=== PATIENT | female | born 1945 | race Caucasian/White ===

== ENCOUNTER 2017-12-04 11:13 | Emergency (ER) | payer BC ==
[2017-12-04 11:20] VITALS: BMI 35.4
--- NOTE | 2017-12-04 12:11 | PDOC ---
History of Present Illness - General Chief Complaint: Pain Stated Complaint: POSSIBLE BLOOD CLOT (LEG) Time Seen by Provider: 12/04/17 11:38 History Source: Patient, Family Exam Limitations: No Limitations - History of Present Illness Initial Comments: This is a 72 YOF with h/o NIDDM with neuropathy, HTN, and HLD who p/w right leg pain/swelling/dilated-appearing blood vessels. She was sent to the ED by her PCP (Dr. Melendrez at [facility]) for continued right leg pain for the past month with worsening over the past week. The patient and her son note that she was seen for these symptoms by this PCP last week and had an US of the RLE which did not show e/o blood clot. The patient states that the pain is crampy, worse in the right calf but radiates between the knee and ankle, fluctuates up to 10/10, worsens with any movement and weight bearing, and has caused her difficulty walking over the past week. She denies any chest pain, SOB , new palpitations, headache, neck pain, new dizziness, abdominal pain, nausea, new numbness, new tingling, new weakness, or other new symptoms. Past History - Past Medical History Allergies/Adverse Reactions: Allergies Allergy/AdvReac Type Severity Reaction Status Date / Time No Known Allergies Allergy Verified 12/04/17 11:16 Home Medications: Ambulatory Orders Cephalexin [Keflex] 500 mg PO BID #10 capsule 12/04/17 Walker [Ultra-Light Rollator] 1 each MC PRN #1 each 12/04/17 COPD: No Diabetes: Yes HTN: Yes Hypercholesterolemia: Yes Thyroid Disease: Yes - Suicide/Smoking/Psychosocial Hx Smoking History: Never smoked Have you smoked in the past 12 months: No Information on smoking cessation initiated: No Hx Alcohol Use: No Drug/Substance Use Hx: No Substance Use Type: None Review of Systems - Review of Systems Able to Perform ROS?: Yes Constitutional: No: Chills, Fever, Unexplained wgt Loss HEENTM: No: Nose Congestion, Throat Pain Respiratory: No: Cough, Shortness of Breath Cardiac (ROS): Yes: Palpitations (chronic intermittent unchanged). No: Chest Pain ABD/GI: No: Constipated, Diarrhea, Nausea, Vomiting : No: Burning, Dysuria Musculoskeletal: Yes: Other (left leg pain/swelling). No: Back Pain, Neck Pain Integumentary: No: Bruising, Rash Neurological: No: Headache, Numbness, Tingling, Weakness, Dizziness Endocrine: No: Unexplained Weight Gain, Unexplained Weight Loss *Physical Exam - Vital Signs Last Vital Signs Temp Pulse Resp BP Pulse Ox 98.3 F 88 18 130/62 100 12/04/17 11:18 12/04/17 11:18 12/04/17 11:18 12/04/17 11:18 12/04/17 11:18 - Physical Exam General Appearance: Yes: Nourished, Appropriately Dressed, Other (alert, oriented, very pleasant older adult female in minimal distress relaxing on hospital bed with son at bedside, answering questions appropriately). No: Apparent Distress HEENT: positive: EOMI, ALEJANDRO, Normal Voice, Hearing Grossly Normal. negative: Scleral Icterus (R), Scleral Icterus (L), Nasal Congestion Neck: positive: Trachea midline, Supple. negative: Tender, Rigid Respiratory/Chest: positive: Lungs Clear, Normal Breath Sounds. negative: Respiratory Distress, Crackles, Rhonchi, Stridor, Wheezing Cardiovascular: positive: Regular Rhythm, Regular Rate, S1, S2. negative: Edema , JVD, Murmur Vascular Pulses: Dorsalis-Pedis (R): 2+, Doralis-Pedis (L): 2+ Gastrointestinal/Abdominal: positive: Normal Bowel Sounds, Flat, Soft. negative : Tender, Organomegaly, Pulsatile Mass, Guarding Musculoskeletal: positive: Normal Inspection. negative: Decreased Range of Motion, Vertebral Tenderness Extremity: positive: Normal Capillary Refill, Tender (right calf tenderness which is moderate and diffuse), Other (mild right medial knee and proximal lower leg swelling with dilated veins and varicosities in leg, painful passive ROM of knee on the right). negative: Cyanosis Integumentary: positive: Normal Color, Dry, Warm. negative: Erythema, Rash, Bruising Neurologic: positive: retail account specialist II-XII NML intact, Fully Oriented, Alert, Normal Mood/ Affect, Normal Response, Motor Strength 5/5 Heart Score/ECG Review #1 12/04/17 14:57 SR, rate 76, 1st degree AV block, normal axis, no ischemic changes ED Treatment Course - LABORATORY CBC & Chemistry Diagram: 12/04/17 13:12 12/04/17 13:12 - RADIOLOGY Radiology Studies Ordered: Category Date Time Status DUPLEX VASCUL US-1 LEG [US] Stat Ultrasound 12/04/17 11:38 Ordered Medical Decision Making - Medical Decision Making Older adult female Patient p/w RLE pain/swelling/dilated blood vessels for the past month. Initial Vital Signs Temp Pulse Resp BP Pulse Ox 98.3 F 88 18 130/62 100 12/04/17 11:18 12/04/17 11:18 12/04/17 11:18 12/04/17 11:18 12/04/17 11:18 Exam: RLE calf tenderness, mild medial knee swelling, varicosities, but pulses intact distally DDX IBNLT: W/U ordered: TX ordered: EKG: SR, rate 76, 1st degree AV block, normal axis, no ischemic changes CXR: UA RLE: Mckinney's cyst, knee effusion, no e/o DVT. CT: Laboratory Tests 12/04/17 12/04/17 12/04/17 13:12 13:12 13:12 WBC 6.4 RBC 4.01 Hgb 11.4 Hct 34.3 MCV 85.5 MCH 28.3 MCHC 33.1 RDW 14.0 Plt Count 211 MPV 8.8 Neutrophils % 60.7 Lymphocytes % 27.6 Monocytes % 9.3 Eosinophils % 2.2 Basophils % 0.2 PT with INR 12.90 INR 1.14 Sodium 139 Potassium 3.7 Chloride 105 Carbon Dioxide 26 Anion Gap 8 BUN 24 H Creatinine 0.8 Creat Clearance w eGFR > 60 Random Glucose 205 H Calcium 8.2 L Phosphorus 2.2 L Magnesium 1.5 L Total Bilirubin 0.3 AST 19 ALT 21 Alkaline Phosphatase 51 Creatine Kinase Creatine Kinase Index CK-MB (CK-2) Troponin I B-Natriuretic Peptide Total Protein 6.7 Albumin 3.4 Urine Color Urine Appearance Urine pH Ur Specific [place] Urine Protein Urine Glucose (UA) Urine Ketones Urine Blood Urine Nitrite Urine Bilirubin Urine Urobilinogen Ur Leukocyte Esterase Urine WBC (Auto) Urine RBC (Auto) Ur Epithelial Cells 12/04/17 12/04/17 13:12 17:26 WBC RBC Hgb Hct MCV MCH MCHC RDW Plt Count MPV Neutrophils % Lymphocytes % Monocytes % Eosinophils % Basophils % PT with INR INR Sodium Potassium Chloride Carbon Dioxide Anion Gap BUN Creatinine Creat Clearance w eGFR Random Glucose Calcium Phosphorus Magnesium Total Bilirubin AST ALT Alkaline Phosphatase Creatine Kinase 193 H Creatine Kinase Index 1.1 CK-MB (CK-2) 2.224 Troponin I < 0.02 B-Natriuretic Peptide 155.83 H Total Protein Albumin Urine Color Ltyellow Urine Appearance Slcloudy Urine pH 6.0 Ur Specific [place] 1.014 Urine Protein Negative Urine Glucose (UA) Negative Urine Ketones Negative Urine Blood Negative Urine Nitrite Positive Urine Bilirubin Negative Urine Urobilinogen Negative Ur Leukocyte Esterase 2+ H Urine WBC (Auto) 46 Urine RBC (Auto) <1 Ur Epithelial Cells Rare The patient has gotten significant relief of symptoms with ED medications. Workup is not concerning for emergency-level pathology at this time. The patient is appropriate for discharge with close outpatient follow up. They are comfortable with this plan and will follow up with their PCP in 1-3 days. They will follow up with Dr. Jennings (ortho) tomorrow. E-Rx sent to the patient's pharmacy for Abx for their UTI. Return precautions are discussed and they will come back to the ER if necessary. *DC/Admit/Observation/Transfer Diagnosis at time of Disposition: Knee effusion, right, Arterial occlusion, lower extremity, Right leg pain UTI (urinary tract infection) Qualifiers: Urinary tract infection type: acute cystitis Hematuria presence: without hematuria Qualified Code(s): N30.00 - Acute cystitis without hematuria - Discharge Dispostion Disposition: HOME Condition at time of disposition: Stable Decision to Admit order: No - Prescriptions Prescriptions: Cephalexin [Keflex] 500 mg PO BID #10 capsule Walker [Ultra-Light Rollator] 1 each PRN #1 each - Referrals Referrals: Clifford Bennett [Primary Care Provider] - - Patient Instructions Printed Discharge Instructions: DI for Knee Effusion Additional Instructions: You were seen in the ER for knee swelling and leg pain. We did lab work on your blood and urine, and these tests showed a urinary tract infection. We also did an ultrasound of the leg which showed no blood clots. We also did a CT scan of the leg which showed a mckinney's cyst at the back of the knee, some fluid within the knee joint, some soft tissue swelling near the knee, and occlusion of one of the arteries in the lower leg. After our assessment, we do not believe you are having a medical emergency at this time, and we believe you are safe to go home. Please follow up with Dr. Jennings as scheduled tomorrow, and with your regular PCP doctor in 1-3 days. Call their clinic as soon as possible, tell them you were seen in the ER, and tell them you need an appointment. supervisor contingents your prescription for antibiotics for your infection from your pharmacy, and take the whole course whether or not you feel better. If you have any new or worsening symptoms, please come back to the ER at any time (24 hours a day). If you are having severe or life threatening symptoms, or symptoms that make it unsafe to drive or have someone drive you, please call 911. - Post Discharge Activity
--- NOTE | 2017-12-04 12:30 | PDOC ---
Attending Attestation - Resident Resident Name: Andrew,Mary - ED Attending Attestation I have performed the following: I have examined & evaluated the patient, The case was reviewed & discussed with the resident, I agree w/resident's findings & plan, Exceptions are as noted - HPI HPI: 12/04/17 13:21 72-year-old female with history of hypertension, diabetes, hyperlipidemia, peripheral neuropathy presents with right lower calf pain for 3 days. Patient reports 3 days ago developing some right lower extremity pain that was nontraumatic. Went to visit her private care physician or obtain a duplex of her lower extremity reportedly was negative for DVTs. The patient was then placed on water pills the patient subsequently reported the symptoms worsened in the right calf. Stated that the patient has been urinating from the medication. States that when she plantar flexes her right foot that she has worsened pain. Denies chest pain or shortness of breath or abdominal pain. States that ambulate he has caused her difficulty. Patient states that the pain is different from her peripheral neuropathy. - Physicial Exam PE: 12/04/17 13:21 GENERAL: Awake, alert, and fully oriented, in no acute distress. HEAD: No signs of trauma EYES: PERRLA, EOMI, sclera anicteric, conjunctiva clear ENT: Auricles normal inspection, hearing grossly normal, nares patent, oropharynx clear without exudates. NECK: Normal ROM, supple, EXTREMITIES: RLE: 2+ DP pulse. Sensation intact throughout. TTP right calf. NEUROLOGICAL: Cranial nerves II through XII grossly intact. Normal speech SKIN: Warm, Dry, normal turgor, no rashes or lesions noted. - Medical Decision Making 12/04/17 13:21 Vital Signs Temp Pulse Resp BP Pulse Ox 98.3 F 88 18 130/62 100 12/04/17 11:18 12/04/17 11:18 12/04/17 11:18 12/04/17 11:18 12/04/17 11:18 I suspect is is likely right calf cramping potentially exacerbated by diuresis on her water pills. We'll trial and give her IV fluids. However, patient is at risk for peripheral vascular disease but the patient does have strong distal pulses. I am not concerned for cold foot at this time. We'll obtain a CTA of the lower extremity. Pain control, repeat duplex and reassess. 12/04/17 17:15 CAT scan demonstrates no significant stenotic disease with three-vessel runoff and left leg to the foot and 3 vessel runoff in the right leg to the level of the ankle with a right PTs occluded with transmetatarsal flow to the plantar aspect of the foot twice a day MOUNA. Ultrasound shows: No evidence of right lower extremity deep vein thrombosis. Right knee joint effusion with thick surrounding soft tissue suggesting synovitis. Approximately 4.8 x 1.3 x 1.0 cm right Mckinney's cyst. CBC, BMP 12/04/17 13:12 12/04/17 13:12 CMP Sodium 139 mmol/L (136-145) 12/04/17 13:12 Potassium 3.7 mmol/L (3.5-5.1) 12/04/17 13:12 Chloride 105 mmol/L (98-107) 12/04/17 13:12 Carbon Dioxide 26 mmol/L (21-32) 12/04/17 13:12 Anion Gap 8 (8-16) 12/04/17 13:12 BUN 24 mg/dL (7-18) H 12/04/17 13:12 Creatinine 0.8 mg/dL (0.55-1.02) 12/04/17 13:12 Creat Clearance w eGFR > 60 (>60) 12/04/17 13:12 Random Glucose 205 mg/dL (74-106) H 12/04/17 13:12 Calcium 8.2 mg/dL (8.5-10.1) L 12/04/17 13:12 Phosphorus 2.2 mg/dL (2.5-4.9) L 12/04/17 13:12 Magnesium 1.5 mg/dL (1.8-2.4) L 12/04/17 13:12 Total Bilirubin 0.3 mg/dL (0.2-1.0) 12/04/17 13:12 AST 19 U/L (15-37) 12/04/17 13:12 ALT 21 U/L (12-78) 12/04/17 13:12 Alkaline Phosphatase 51 U/L (45-117) 12/04/17 13:12 Creatine Kinase 193 IU/L (26-192) H 12/04/17 13:12 Creatine Kinase Index 1.1 % (0.0-5.0) 12/04/17 13:12 CK-MB (CK-2) 2.224 ng/mL (0.5-3.6) 12/04/17 13:12 Troponin I < 0.02 ng/ml (0.00-0.05) 12/04/17 13:12 B-Natriuretic Peptide 155.83 pg/ml (5-125) H 12/04/17 13:12 Total Protein 6.7 g/dl (6.4-8.2) 12/04/17 13:12 Albumin 3.4 g/dl (3.4-5.0) 12/04/17 13:12 UA pending to r/o UTI. At this time, WBC is normal and no fever. I do not suspect an infected knee infection at this time. There is a mckinney's cyst which is likely the source of her pain. The patient is ambulatory with tylenol. She has an appointment with Dr. Jennings tomorrow. Heart Score/ECG Review #1 ECG reviewed & interpreted by me at: 12:15 12/04/17 12:29 NSR 76 with 1st degree AV block, no std/sarahy, T wave flat III, normal axis, normal intervals, QTC 445 msec
[2017-12-04] MEDS ORDERED: ACETAMINOPHEN 1000 MG/100 ML VIAL (NON FORMULARY) IVPB ONE (13:00)
[2017-12-04] MEDS ORDERED: SODIUM CHLORIDE 0.9% 500 ML INFUS.BAG IV ONE (13:00)
[2017-12-04] MEDS ORDERED: ACETAMINOPHEN INJECTION 100 ML IVPB ONE (13:18)
[2017-12-04 13:21] LABS: BASO % 0.2 % (0-2.0); EOS % 2.2 % (0-4.5); HEMATOCRIT 34.3 % (32.4-45.2); HEMOGLOBIN 11.4 GM/dL (10.7-15.3); LYMPH % 27.6 % (8-40); MCH 28.3 pg (25.7-33.7); MCHC 33.1 g/dl (32.0-36.0); MEAN CELL VOLUME 85.5 fl (80-96); MEAN PLT VOLUME 8.8 fl (7.5-11.1); MONO % 9.3 % (3.8-10.2); NEUT % 60.7 % (42.8-82.8); PLATELET COUNT 211 K/MM3 (134-434); RBC 4.01 M/mm3 (3.60-5.2); WHITE BLOOD COUNT 6.4 K/mm3 (4.0-10.0)
[2017-12-04 13:45] LABS: ALBUMIN 3.4 g/dl (3.4-5.0); ANION GAP 8 (8-16); BILIRUBIN,TOTAL 0.3 mg/dL (0.2-1.0); BLOOD UREA NITROGEN 24 mg/dL (7-18); CALCIUM 8.2 mg/dL (8.5-10.1); CHLORIDE 105 mmol/L (98-107); CO2 26 mmol/L (21-32); CREATININE 0.8 mg/dL (0.55-1.02); GLUCOSE,RANDOM 205 mg/dL (74-106); MAGNESIUM 1.5 mg/dL (1.8-2.4); PHOSPHOROUS 2.2 mg/dL (2.5-4.9); POTASSIUM 3.7 mmol/L (3.5-5.1); SGOT/AST 19 U/L (15-37); SGPT/ALT 21 U/L (12-78); SODIUM 139 mmol/L (136-145); TOT PROT 6.7 g/dl (6.4-8.2)
[2017-12-04 13:46] LABS: ALK PHOS 51 U/L (45-117); INR 1.14 (0.82-1.09); N-TERMINAL BNP 155.83 pg/ml (5-125); PROTHROMBIN TIME (PATIENT) 12.9 SEC (9.7-13.0)
--- NOTE | 2017-12-04 13:52 | EKG ---
Test Reason : Blood Pressure : / mmHG Vent. Rate : 076 BPM Atrial Rate : 076 BPM P-R Int : 226 ms QRS Dur : 084 ms QT Int : 396 ms P-R-T Axes : 078 025 040 degrees QTc Int : 445 ms SINUS RHYTHM WITH 1ST DEGREE A-V BLOCK OTHERWISE NORMAL ECG NO PREVIOUS ECGS AVAILABLE Confirmed by MD Eric, Marco ([id number]) on 12/04/2017 1:52:12 PM Referred By: Confirmed By:Marco Reyes MD
[2017-12-04] MEDS ORDERED: MAGNESIUM SULF 50% (8.12 MEQ/2 ML-1 GM VIAL) IVPB ONE (14:21)
[2017-12-04] MEDS ORDERED: MAGNESIUM SULF 50% (8.12 MEQ/2 ML-1 GM VIAL) ONE (15:38)
[2017-12-04 16:20] VITALS: BP 128/64; PULSE 80; TEMP 98.1
[2017-12-04 17:31] LABS: URINE APPEARANCE SLCLOUDY; URINE BILIRUBIN NEGATIVE (<2.0 mg/dL); URINE COLOR LTYELLOW; URINE GLUCOSE (UA) NEGATIVE (NEGATIVE); URINE KETONE NEGATIVE (NEGATIVE); URINE LEUK ESTERASE 2+ (NEGATIVE); URINE NITRITE POSITIVE (NEGATIVE); URINE PROTEIN NEGATIVE (NEGATIVE); URINE UROBILINOGEN NEGATIVE mg/dL (0.2-1.0)
[2017-12-04 17:34] LABS: EPI CELLS RARE /HPF (FEW)
== END 2017-12-04 18:12 | disposition home or self-care (01) ==
LOC: JER 11:13
PROC: 3E033NZ Introduction of Analgesics, Hypnotics, Sedatives into Peripheral Vein, Percutaneous Approach (ICD-10-PCS; principal; 2017-12-04)
PROC: 3E033GC Introduction of Other Therapeutic Substance into Peripheral Vein, Percutaneous Approach (ICD-10-PCS; 2017-12-04)
DX: M71.21 Synovial cyst of popliteal space [Baker], right knee (principal); N30.00 Acute cystitis without hematuria; M25.461 Effusion, right knee; I77.89 Other specified disorders of arteries and arterioles; I10 Essential (primary) hypertension; E78.5 Hyperlipidemia, unspecified; R00.2 Palpitations; E11.42 Type 2 diabetes mellitus with diabetic polyneuropathy; Z79.84 Long term (current) use of oral hypoglycemic drugs; R26.89 Other abnormalities of gait and mobility; Z99.89 Dependence on other enabling machines and devices
CPT/HCPCS: 36415; 75635-TC; 80053; 81003; 81015; 82550; 82553; 83735; 83880; 84100; 84484; 85025; 85610; 87086; 87186; 93005; 93010; 93971-TC; 96374; 96375; 99283-25; J0131

== ENCOUNTER 2021-07-23 13:12 | Observation (INO) | payer BC, OTHER ==
[2021-07-23 13:27] VITALS: BMI 33.5
[2021-07-23] MEDS ORDERED: ACETAMINOPHEN 500 MG TABLET (FP) PO ONE (14:02)
[2021-07-23] MEDS ORDERED: ACETAMINOPHEN 325 MG TABLET (FP) ONE (14:21)
[2021-07-23 15:07] LABS: EPI CELLS >36 /uL (0-25.1); HYALINE CASTS 1 /uL (0-3.1); URINE APPEARANCE CLEAR; URINE BACTERIA 56 /uL (0-1359); URINE BILIRUBIN NEGATIVE (NEGATIVE); URINE COLOR YELLOW; URINE GLUCOSE (UA) NEGATIVE (NEGATIVE); URINE KETONE NEGATIVE (NEGATIVE); URINE LEUK ESTERASE TRACE (NEGATIVE); URINE NITRITE NEGATIVE (NEGATIVE); URINE PROTEIN 3+ (NEGATIVE); URINE RBC 8 /uL (0-23.9); URINE UROBILINOGEN 0.2 mg/dL (0.2-1.0); URINE WBC 21 /uL (0-25.8)
[2021-07-23] MEDS ORDERED: SODIUM CHLORIDE 0.9% 500 ML INFUS.BAG IV ONE (15:10)
[2021-07-23 15:17] LABS: BASO % 0.9 % (0-2.0); EOS % 1.2 % (0-4.5); HEMATOCRIT 32.4 % (32.4-45.2); HEMOGLOBIN 10.7 GM/dL (10.7-15.3); LYMPH % 18.8 % (8-40); MCH 29.1 pg (25.7-33.7); MEAN CELL VOLUME 88.2 fl (80-96); MEAN PLT VOLUME 9.8 fl (7.5-11.1); MONO % 4.4 % (3.8-10.2); NEUT % 74.7 % (42.8-82.8); PLATELET COUNT 214 10^3/uL (134-434); RBC 3.67 M/mm3 (3.60-5.2); RDW 14.4 % (11.6-15.6); WHITE BLOOD COUNT 7.3 K/mm3 (4.0-10.0)
[2021-07-23 15:36] LABS: CHLORIDE 113 mmol/L (98-107); SODIUM 141 mmol/L (136-145)
[2021-07-23 15:39] LABS: ALBUMIN 3.8 g/dl (3.4-5.0); ANION GAP 10 MMOL/L (8-16); BLOOD UREA NITROGEN 79.6 mg/dL (7-18); CO2 18 mmol/L (21-32); GLUCOSE,RANDOM 126 mg/dL (74-106)
[2021-07-23 15:42] LABS: SGOT/AST 31 U/L (15-37); SGPT/ALT 36 U/L (13-61)
[2021-07-23 15:43] LABS: BILIRUBIN,TOTAL 0.3 mg/dL (0.2-1); TOT PROT 7.6 g/dl (6.4-8.2)
[2021-07-23 15:45] LABS: ALK PHOS 81 U/L (45-117)
[2021-07-23] MEDS ORDERED: SODIUM CHLORIDE 1,000 ML IV SCH (18:00)
[2021-07-23 18:25] LABS: CHLORIDE 115 mmol/L (98-107); SODIUM 141 mmol/L (136-145)
[2021-07-23 18:27] LABS: ALBUMIN 3.4 g/dl (3.4-5.0); ANION GAP 10 MMOL/L (8-16); BLOOD UREA NITROGEN 77.6 mg/dL (7-18); CALCIUM 8.6 mg/dL (8.5-10.1); CO2 16 mmol/L (21-32); GLUCOSE,RANDOM 90 mg/dL (74-106)
[2021-07-23 18:30] LABS: SGPT/ALT 32 U/L (13-61)
[2021-07-23 18:31] LABS: SGOT/AST 29 U/L (15-37)
[2021-07-23] MEDS ORDERED: ACETAMINOPHEN 1000 MG/100 ML VIAL IVPB PRN (18:31)
[2021-07-23 18:32] LABS: BILIRUBIN,TOTAL 0.3 mg/dL (0.2-1); TOT PROT 6.9 g/dl (6.4-8.2)
[2021-07-23 18:33] LABS: ALK PHOS 74 U/L (45-117)
[2021-07-23] MEDS: amLODIPine BESYLATE 5 MG TABLET (FP) PO SCH (18:47)
[2021-07-23] MEDS ORDERED: ROSUVASTATIN CA 5 MG TABLET (FP) PO SCH (22:00)
[2021-07-23] MEDS: HEPARIN NA (PORCINE) 5,000 UNITS/ML 1ML VIAL SQ SCH (23:47)
[2021-07-23] MEDS: INSULIN SLIDING SCALE (NOVOLOG) 1 VIAL SQ SCH (23:48)
[2021-07-24] MEDS: HEPARIN NA (PORCINE) 5,000 UNITS/ML 1ML VIAL SQ SCH (06:20)
[2021-07-24] MEDS: INSULIN SLIDING SCALE (NOVOLOG) 1 VIAL SQ SCH ×2 (06:21→11:28)
[2021-07-24 07:18] LABS: BASO % 1.3 % (0-2.0); EOS % 3.2 % (0-4.5); HEMATOCRIT 26.4 % (32.4-45.2); LYMPH % 31.1 % (8-40); MCH 29.6 pg (25.7-33.7); MCHC 33.9 g/dl (32.0-36.0); MEAN CELL VOLUME 87.3 fl (80-96); MEAN PLT VOLUME 9.8 fl (7.5-11.1); MONO % 6.6 % (3.8-10.2); NEUT % 57.8 % (42.8-82.8); PLATELET COUNT 175 10^3/uL (134-434); RBC 3.03 M/mm3 (3.60-5.2); RDW 14.5 % (11.6-15.6); WHITE BLOOD COUNT 6.3 K/mm3 (4.0-10.0)
[2021-07-24 07:52] LABS: ALBUMIN 2.8 g/dl (3.4-5.0); BLOOD UREA NITROGEN 67.2 mg/dL (7-18); MAGNESIUM 1.7 mg/dL (1.8-2.4)
[2021-07-24 07:54] LABS: CREATININE 2.7 mg/dL (0.55-1.3)
[2021-07-24 07:55] LABS: PHOSPHOROUS 3.1 mg/dL (2.5-4.9)
[2021-07-24 07:56] LABS: BILIRUBIN,TOTAL 0.3 mg/dL (0.2-1)
[2021-07-24] MEDS: amLODIPine BESYLATE 5 MG TABLET (FP) PO SCH (09:33)
[2021-07-24 09:39] VITALS: BP 151/79; PULSE 66; TEMP 98
[2021-07-24] MEDS ORDERED: ASPIRIN 81 MG CHEWABLE TABLETS PO SCH (10:00)
== END 2021-07-24 18:39 | disposition left against medical advice (07) ==
LOC: JER 13:12 → JERBED 15:43 → J4W 18:36
PROVIDERS: ADMIT Internal Medicine; ATTEND Internal Medicine
PROC: 3E033NZ Introduction of Analgesics, Hypnotics, Sedatives into Peripheral Vein, Percutaneous Approach (ICD-10-PCS; principal; 2021-07-23)
PROC: 3E0337Z Introduction of Electrolytic and Water Balance Substance into Peripheral Vein, Percutaneous Approach (ICD-10-PCS; 2021-07-23)
PROC: 3E013GC Introduction of Other Therapeutic Substance into Subcutaneous Tissue, Percutaneous Approach (ICD-10-PCS; 2021-07-23)
DX: Z04.3 Encounter for examination and observation following other accident (principal); N17.9 Acute kidney failure, unspecified; R07.89 Other chest pain; S05.11XA Contusion of eyeball and orbital tissues, right eye, initial encounter; W10.8XXA Fall (on) (from) other stairs and steps, initial encounter; Y93.89 Activity, other specified; Y92.009 Unspecified place in unspecified non-institutional (private) residence as the place of occurrence of the external cause; M54.59 Other low back pain; G89.29 Other chronic pain; I10 Essential (primary) hypertension; E11.42 Type 2 diabetes mellitus with diabetic polyneuropathy; Z79.84 Long term (current) use of oral hypoglycemic drugs; E78.5 Hyperlipidemia, unspecified; F41.9 Anxiety disorder, unspecified; E87.2 Acidosis; I16.0 Hypertensive urgency; R82.81 Pyuria
CPT/HCPCS: 36415; 70450-TC; 70486-TC; 71046-TC-FY; 72100-TC-FY; 72125-TC; 73060-TC-RT-FY; 73070-TC-RT-FY; 73090-TC-RT-FY; 73562-TC-RT-FY; 80053; 81003; 82550; 82553; 82962; 83735; 84100; 84436; 84443; 84484; 85025; 87086; 93005; 93010; 96372; 96374; 99285-25; C9803; G0378; J0131; J1644; U0003; U0005